=== PATIENT | female | born 1945 | race Caucasian/White ===

== ENCOUNTER 2016-06-28 12:17 | Emergency (ER) | payer MEDICARE ==
[~2016-06-28] VITALS: Wt 111.1 kg
[2016-06-28 12:17] VITALS: BP 150/72
[~2016-06-28 12:17] MED LIST: BUMEX1 MG PO; CATAPRES0.2 MG PO; CHOLESTEROL; CIPROFLOXACIN500 MG PO; CLINDAMYCIN HC300 MG PO; COL-RITE100 M1 PO; COZAAR50 MG PO; GLIPIZIDE10 MG PO; NEURONTIN600 MG PO; NEXIUM40 MG PO; NOVOLIN 70/30 710 ML SC; NYSTATIN CREAM15 GM T; PYRIDIUM200 MG PO; ULTRAM50 MG PO; VICODIN 5/500 505 MG PO; Vicodin 5/500 505 MG PO
[2016-06-28 12:44] LABS: BILIRUBIN NEGATIVE (NEGATIVE); BLOOD 2+ (NEGATIVE); CLARITY CLOUDY (CLEAR); COLOR YELLOW (YELLOW); GLUCOSE 3+ (NEGATIVE); KETONE NEGATIVE (NEGATIVE); LEUKO ESTERASE 1+ (NEGATIVE); NITRITE POSITIVE (NEGATIVE); PH 5.5 (5.0-9.0); PROTEIN 2+ (NEGATIVE); SPECIFIC GRAVITY 1.025 (1.005-1.030)
[2016-06-28 12:46] LABS: BASO % 0.6 % (0.0-1.0); EOS # 0.1 10*3/uL (0.0-0.4); EOS % 2.2 % (1.0-4.0); HEMATOCRIT 45.5 % (37.0-47.0); HEMOGLOBIN 14.9 g/dl (12.0-16.0); LYMPH % 32.1 % (27.0-41.0); MEAN CELL VOLUME 84.7 fl (81.0-99.0); MEAN CORPUSCULAR HGB 27.7 pg (27.0-31.0); MEAN CORPUSCULAR HGB CONC 32.7 g/dl (33.0-37.0); MEAN PLATELET VOLUME 11.8 fl (9.6-12.3); MONO # 0.3 10*3/uL (0.1-1.0); MONO % 5.2 % (3.0-9.0); NEUT # 3.8 10*3/uL (2.3-7.9); NEUT % 59.6 % (47.0-73.0); PLATELET COUNT AUTOMATED 193 10*3/uL (130-400); RED BLOOD COUNT 5.37 10*6/uL (4.10-5.10); RED CELL DISTRI WIDTH 13.6 % (0-14.5); WHITE BLOOD COUNT 6.4 10*3/uL (4.8-10.8)
[2016-06-28 12:50] LABS: BACTERIA 4+; URINE REFLEX COMMENT YES (NO); WBC 51-100 wbc/hpf (0-5)
[2016-06-28 13:02] LABS: ALKALINE PHOSPHATASE 190 U/L (45-117); BILIRUBIN, TOTAL 0.5 mg/dl (0.2-1.0); BUN 18 mg/dl (7-24); CARBON DIOXIDE 28 mmol/L (21-32); CHLORIDE 102 mmol/L (98-107); EST GLOM FILT AFRICAN AMERICAN > 60 ml/min; GLUCOSE 358 mg/dL (65-99); POTASSIUM 4.6 mmol/L (3.5-5.1); SGOT/AST 45 IU/L (3-35); SGPT/ALT 52 U/L (12-78); SODIUM 141 mmol/L (136-145); TOTAL PROTEIN 7.2 gm/dL (6.4-8.2)
[2016-06-28] MEDS ORDERED: MACROBID100 M1 PO (13:25)
== END 2016-06-28 13:26 | disposition home or self-care (01) ==
LOC: ED 12:17
PROVIDERS: Registered Nurse
DX: N30.01 Acute cystitis with hematuria (principal); E11.65 Type 2 diabetes mellitus with hyperglycemia; Z98.51 Tubal ligation status; Z90.710 Acquired absence of both cervix and uterus; Z98.890 Other specified postprocedural states; Z79.899 Other long term (current) drug therapy; Z88.2 Allergy status to sulfonamides; Z88.5 Allergy status to narcotic agent; Z88.6 Allergy status to analgesic agent; Z88.1 Allergy status to other antibiotic agents; Z91.041 Radiographic dye allergy status; Z88.0 Allergy status to penicillin

== ENCOUNTER 2016-10-10 23:49 | Emergency (ER) | payer MEDICARE ==
[~2016-10-10] VITALS: Ht 170.1 cm; Wt 117.0 kg
[~2016-10-10 23:49] MED LIST changes: +MACROBID100 M1 PO
[2016-10-11 00:04] VITALS: BP 170/91
[2016-10-11] MEDS ORDERED: NOVOLIN 70100 UNIT/1 SQ (00:05)
[2016-10-11] MEDS ORDERED: KENALOG 0.025%15 GM T (00:07)
[2016-10-11 00:40] LABS: BASO # 0.1 10*3/uL (0.0-0.1); BASO % 0.7 % (0.0-1.0); EOS # 0.2 10*3/uL (0.0-0.4); EOS % 2.2 % (1.0-4.0); HEMATOCRIT 48.7 % (37.0-47.0); HEMOGLOBIN 15.7 g/dl (12.0-16.0); LYMPH # 2.3 10*3/uL (1.3-4.4); LYMPH % 31.2 % (27.0-41.0); MEAN CELL VOLUME 85.3 fl (81.0-99.0); MEAN CORPUSCULAR HGB 27.5 pg (27.0-31.0); MEAN CORPUSCULAR HGB CONC 32.2 g/dl (33.0-37.0); MEAN PLATELET VOLUME 11.1 fl (9.6-12.3); MONO # 0.4 10*3/uL (0.1-1.0); MONO % 5.3 % (3.0-9.0); NEUT # 4.4 10*3/uL (2.3-7.9); NEUT % 60.1 % (47.0-73.0); PLATELET COUNT AUTOMATED 218 10*3/uL (130-400); RED BLOOD COUNT 5.71 10*6/uL (4.10-5.10); RED CELL DISTRI WIDTH 13.2 % (0-14.5); WHITE BLOOD COUNT 7.3 10*3/uL (4.8-10.8)
[2016-10-11 00:55] LABS: ALBUMIN 3.1 gm/dl (3.1-4.5); BILIRUBIN, TOTAL 0.3 mg/dl (0.2-1.0); C-REACTIVE PROTEIN 0.99 MG/DL (0-0.3); POTASSIUM 4.5 mmol/L (3.5-5.1)
[2016-10-11 01:09] LABS: BILIRUBIN NEGATIVE (NEGATIVE); BLOOD NEGATIVE (NEGATIVE); CLARITY SL CLOUDY (CLEAR); COLOR YELLOW (YELLOW); GLUCOSE 3+ (NEGATIVE); KETONE NEGATIVE (NEGATIVE); LEUKO ESTERASE NEGATIVE (NEGATIVE); NITRITE NEGATIVE (NEGATIVE); PH 5.5 (5.0-9.0); PROTEIN NEGATIVE (NEGATIVE)
[2016-10-11 01:31] LABS: BACTERIA 3+; URINE REFLEX COMMENT YES (NO); WBC 21-30 wbc/hpf (0-5)
[2016-10-11] MEDS ORDERED: CLINDAMYCIN HC300 MG PO (02:23)
[2016-10-11] MEDS ORDERED: FLAGYL500 MG PO (02:23)
== END 2016-10-11 02:42 | disposition home or self-care (01) ==
LOC: ED 23:49
PROVIDERS: Emergency Medicine Emergency Medical Services
DX: E11.621 Type 2 diabetes mellitus with foot ulcer (principal); L97.419 Non-pressure chronic ulcer of right heel and midfoot with unspecified severity; E11.65 Type 2 diabetes mellitus with hyperglycemia; N39.0 Urinary tract infection, site not specified; Z88.0 Allergy status to penicillin; Z88.6 Allergy status to analgesic agent; Z88.8 Allergy status to other drugs, medicaments and biological substances; Z88.1 Allergy status to other antibiotic agents; Z91.041 Radiographic dye allergy status; Z79.899 Other long term (current) drug therapy; Z79.4 Long term (current) use of insulin

== ENCOUNTER → 2016-10-16 | Outpatient (CLI) | payer MEDICARE ==
[~2016-10-16] MED LIST changes: +FLAGYL500 MG PO; +KENALOG 0.025%15 GM T; +NOVOLIN 70100 UNIT/1 SQ
== END ==
LOC: WOUNDCARE 12:25
DX: E11.621 Type 2 diabetes mellitus with foot ulcer (principal); L89.610 Pressure ulcer of right heel, unstageable; E66.9 Obesity, unspecified; E11.40 Type 2 diabetes mellitus with diabetic neuropathy, unspecified; L84 Corns and callosities; Z90.710 Acquired absence of both cervix and uterus

== ENCOUNTER → 2016-11-04 | Outpatient (CLI) | payer MEDICARE | END | disposition home or self-care (01) | LOC: US 10-24 15:00 | DX: E11.621 Type 2 diabetes mellitus with foot ulcer (principal); I73.9 Peripheral vascular disease, unspecified; L97.519 Non-pressure chronic ulcer of other part of right foot with unspecified severity; S91.301A Unspecified open wound, right foot, initial encounter; X58.XXXA Exposure to other specified factors, initial encounter; Y93.89 Activity, other specified; Y92.89 Other specified places as the place of occurrence of the external cause; Y99.8 Other external cause status ==

== ENCOUNTER → 2016-11-11 | Outpatient (CLI) | payer MEDICARE ==
--- NOTE | ~2016-11-11 | PR ---
[place], [place] PROGRESS NOTE NAME: KASHIF MARQUES [facility] #: [id number] UNIT #: [id number] ROOM: DOCTOR: JOHNNIE ClaireKRIS BIRTHDATE: [birth year] DOS: 11/11/2016 CHIEF COMPLAINT: Follow up of diabetic foot ulcer. HISTORY OF PRESENT ILLNESS: This is a 70-year-old female who was seen for the first time on 10/16/2016 for a diabetic foot ulcer of approximately 2-3 weeks at that time. She has unfortunately missed two appointments after that and comes in today for her followup visit. At that time, it was noted that she had a fairly thick eschar on her right heel that was fairly asymptomatic, no aggressive debridement was done. It was felt to just that it would be best to try to keep the wound dry and an ultrasound was ordered. We had also encouraged her to offload the area as much as possible. She did eventually undergo an ultrasound that was done on 11/04/2016 which shows severe peripheral vascular disease of the right leg. There is apparent occlusion of the distal superficial femoral artery with reconstitution of the popliteal artery and dampened abnormal flow, as described monophasic flow is seen distally. The patient notes that it is starting to drain for the past week or so, she has noticed some drainage and it is starting to become painful and reddened around it. She is off antibiotics for approximately a week. When I asked specifically what her sugars were, she says all in the 200 range. I was able to see what her last hemoglobin A1c was, it was over 13, but that was several years ago, and I did not see anything recently after that. She offers no other specific complaints. Her states that she is definitely trying to keep the pressure off of it. She rarely is up on her feet at all and when she is lying in a chair or her bed, her foot is free from pressure. PHYSICAL EXAMINATION: VITAL SIGNS: She is afebrile, pulse is 88, respirations 20, blood pressure is 124/82, temperature is 98.3. WOUND EXAMINATION: Apparently, the staff noted that there was some slight odor when they first took the dressing off. Currently, I do not appreciate an odor. There is still some fairly thick eschar, but a lot of it is soft fibrin and slough. There is erythema around the heel area and also tenderness. It is slightly warm to touch as well. A selective debridement was done to remove some of the devitalized tissue that was already starting to come off where the eschar appears to have softened and forceps and scissors were utilized. Post-debridement, culture swab was obtained as well. Post-debridement measurements are 2.2 x 2.3 x 0.2. I am actually able to see some of the base of the wound after some of the eschar was removed and it does not appear to be independent or bone at this time. ASSESSMENT AND PLAN: Diabetic foot ulcer. I would still classify it as unstageable as we still have some eschar left that we cannot see the base of the wound. She definitely has vascular disease and needs to see Vascular for a consultation. I did explain how important this is, so we will go ahead and try to set her up with Vascular as the wound is draining and there is a sign of localized infection. We will go ahead and start antibiotics empirically, she does not appear septic in any way, a culture was obtained. We will start doxycycline 100 twice a day. We will go ahead and advise to use TheraHoney and Maxorb Ag and have a bulky dressing after that to be changed every day if [place], [place] PROGRESS NOTE NAME: KASHIF MARQUES UNIT #: [id number] ROOM: DOCTOR: KRIS BLAIR M.D. BIRTHDATE: [birth year] possible. I did also discuss the fact that her diabetes is uncontrolled and she really needs to get her diabetic control much improved. So, we will go ahead and check a hemoglobin A1c as I could not find one done recently and an MRI without contrast has been ordered. She does not wish to have any kind contrast at this point as she has had a severe reaction in the past. So, we will go ahead and start with an open MRI of the right heel, noncontrast for now. She does have some claustrophobia and requested something to be given prior to the test. So, a script for Xanax 0.25 mg tablets 1-2 tablets 15 minutes before the test was ordered for her. Followup within 1 week. KRIS BLAIR MD CM:PNTRANS [id number] KRIS BLAIR M.D. 11/11/16 1647 interface
[2016-11-11 15:52] LABS: HEMOGLOBIN A1c 10.5 % (4.8-5.6)
== END | disposition home or self-care (01) ==
LOC: LAB 03:15 → WOUNDCARE 03:15
DX: E11.621 Type 2 diabetes mellitus with foot ulcer (principal); L89.610 Pressure ulcer of right heel, unstageable

== ENCOUNTER 2016-11-16 18:56 | Emergency (ER) | payer MEDICARE ==
[~2016-11-16] VITALS: Ht 162.5 cm; Wt 117.9 kg
[~2016-11-16 18:56] MED LIST changes: +COZAAR100 MG PO; -COZAAR50 MG PO
[2016-11-16 19:05] VITALS: BP 140/90
[2016-11-16 19:43] LABS: BASO % 0.5 % (0.0-1.0); EOS # 0.1 10*3/uL (0.0-0.4); EOS % 1.3 % (1.0-4.0); HEMATOCRIT 45.8 % (37.0-47.0); HEMOGLOBIN 14.9 g/dl (12.0-16.0); IG # 0.1 10*3/uL (0.0-0.1); LYMPH # 2.3 10*3/uL (1.3-4.4); MEAN CELL VOLUME 85.8 fl (81.0-99.0); MEAN CORPUSCULAR HGB 27.9 pg (27.0-31.0); MEAN CORPUSCULAR HGB CONC 32.5 g/dl (33.0-37.0); MEAN PLATELET VOLUME 11.1 fl (9.6-12.3); MONO # 0.8 10*3/uL (0.1-1.0); NEUT # 5.2 10*3/uL (2.3-7.9); NEUT % 61.6 % (47.0-73.0); PLATELET COUNT AUTOMATED 238 10*3/uL (130-400); RED BLOOD COUNT 5.34 10*6/uL (4.10-5.10); RED CELL DISTRI WIDTH 13.4 % (0-14.5); WHITE BLOOD COUNT 8.4 10*3/uL (4.8-10.8)
[2016-11-16 19:57] LABS: ALBUMIN 2.8 gm/dl (3.1-4.5); BILIRUBIN, TOTAL 0.4 mg/dl (0.2-1.0); POTASSIUM 4.2 mmol/L (3.5-5.1); TOTAL PROTEIN 7.6 gm/dL (6.4-8.2)
[2016-11-16 20:15] LABS: HEMOGLOBIN A1c 10.2 % (4.8-5.6)
[2016-11-16] MEDS ORDERED: ZOFRAN ODT4 MG SL (22:07)
== END 2016-11-16 22:56 | disposition home or self-care (01) ==
LOC: ED 18:56
PROVIDERS: Emergency Medicine Emergency Medical Services
DX: E11.621 Type 2 diabetes mellitus with foot ulcer (principal); L97.519 Non-pressure chronic ulcer of other part of right foot with unspecified severity; Z98.51 Tubal ligation status; Z98.890 Other specified postprocedural states; Z90.710 Acquired absence of both cervix and uterus; Z79.899 Other long term (current) drug therapy; Z91.041 Radiographic dye allergy status; Z88.5 Allergy status to narcotic agent; Z88.0 Allergy status to penicillin; Z88.2 Allergy status to sulfonamides; Z88.6 Allergy status to analgesic agent; Z88.1 Allergy status to other antibiotic agents

== ENCOUNTER 2016-11-18 10:52 | Inpatient (IN) | payer MEDICARE ==
[~2016-11-18] VITALS: Ht 170.2 cm; Wt 111.1 kg
--- NOTE | ~2016-11-18 | PR ---
[place], [place] PROGRESS NOTE NAME: KASHIF MARQUES UNIT #: [id number] ROOM: 416 DOCTOR: THUY MCLAUGHLIN MD BIRTHDATE: [birth year] DOS: SUBJECTIVE: The patient states that she continues to have pain in the right heel, does not have any new complaints. OBJECTIVE: VITAL SIGNS: Blood pressure is 119/53, pulse of 95, respirations 20, temperature 98.8. LUNGS: Diminished breath sounds, clear. HEART: Regular. ABDOMEN: Obese. EXTREMITIES: No edema on the left. Right, no swelling noted. Some redness in the heel area with eschar still present with some minimal drainage. LABORATORY DATA: MRI of the right heel showed high grade tear of the Achilles tendon with cellulitis and soft tissue swelling as well as osteomyelitis of the posterolateral aspect of the calcaneum with bone marrow edema and plantar fascitis. Bone scan also showed osteomyelitis of the right calcaneum. ASSESSMENT AND PLAN: 1. 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 The patient is on IV antibiotics. 2. Severe peripheral vascular disease. She underwent an arterial Doppler recently and she was scheduled to see Dr. Busch as an outpatient end. I already spoke to him yesterday and he is planning to take her to the [facility] this morning for a CT angiogram. I discussed with both patient and her in detail. 3. Type 2 diabetes mellitus, insulin-dependent. Blood sugars have not been very well controlled, hemoglobin A1c is high. The patient was started on Tradjenta in addition to her other medications. Blood sugar is 128 this morning. Encouraged the patient to make sure that she takes better control of her diabetes. 4. Hypertension, controlled. I did discuss with the patient's and the patient about possibility of shelter placement after hospitalization at [place] for continued wound care and IV antibiotics, which she will require for 6 weeks. [place], [place] PROGRESS NOTE NAME: KASHIF MARQUES UNIT #: [id number] ROOM: 416 DOCTOR: THUY MCLAUGHLIN MD BIRTHDATE: [birth year] THUY MCLAUGHLIN MD CM:PNTRANS [id number] THUY MCLAUGHLIN MD 11/20/161932 interface
--- NOTE | ~2016-11-18 | CON ---
[place], [place] REPORT OF CONSULTATION [id number] UNIT #: [id number] ROOM: 416 DOCTOR: KRIS BLAIR M.D. BIRTHDATE: [birth year] DOS: 11/19/2016 WOUND CARE CONSULT CHIEF COMPLAINT: Diabetic foot ulcer. HISTORY OF PRESENT ILLNESS: This is a 70-year-old female with history of poorly controlled diabetes who was seen in the Wound Clinic mid October for the first time for a diabetic foot ulcer. She apparently had the ulcer for approximately 3 weeks prior to that where she thought that it started when a coin got in her shoe and she had been walking on it without realizing it and developed an ulcer. When she presented, the area was located on the right heel and it was fairly asymptomatic at the time with a thick dry eschar, dull aggressive debridement was done at that time. It was felt that the best, try to keep it dry until vascular studies were done. KRIS BLAIR MD CM:CONSTR:REPORT OF CONSULTATION 1110 11/20/16 1227 interface
--- NOTE | ~2016-11-18 | DS ---
[place], [place] DISCHARGE SUMMARY NAME: KASHIF MARQUES [facility] #: [id number] UNIT #: [id number] ROOM: 416 DOCTOR: THUY MCLAUGHLIN MD BIRTHDATE: [birth year] DOS: 11/20/2016 DIAGNOSES: 1. Osteomyelitis of the calcaneum. 2. Rupture of Achilles tendon of the right with plantar fasciitis. 3. Severe peripheral vascular disease. 4. Needing CTA of the lower extremity. The patient to go to [place] under Dr. Busch's care this morning. 5. Adult failure to thrive, may require longterm placement for continued IV antibiotics and wound care, which hopefully will be arranged once she gets to the [facility]. 6. Type 2 diabetes mellitus, insulin dependent, poorly controlled. 7. Benign hypertension. 8. Chronic kidney disease stage 3. HOSPITAL COURSE: This patient is a 70-year-old, patient of Dr. Wing, comes in with complaints of swelling and redness of the right heel. She has been seeing Wound Clinic for a while and has been getting treated with p.o. antibiotics. Ultrasound was recently done, which showed significant disease and the patient was supposed to see Dr. Busch as an outpatient end of this month, but because of increasing pain and swelling and growth of some bacteria in the wound, she was admitted to [facility] on the 14th evening. After admission, she was noted to have E. coli in the wound. She was placed on IV meropenem. An MRI of the ankle and foot as well as a triphasic bone scan were done. ESR and CRP were extremely elevated with a CRP which is 12.0 and ESR of 90. MRI of the ankle showed Achilles tendon tear, significant soft tissue swelling and calcaneal osteomyelitis. Dr. Dillon from Wound Clinic did see the patient and since she has significant disease, the patient is going to [facility] for CT angiogram and further care. She will benefit from 6 weeks of IV antibiotics, and hopefully, she will be admitted to rehab to continue receiving that. DISCHARGE MEDICATIONS: Meropenem 1 g IV b.i.d., Nexium 40 daily, losartan 100 daily, glipizide 10 b.i.d., gabapentin 600 b.i.d., clonidine 0.2 at bedtime, Colace 100 mg daily, insulin 70/30, 80 units twice daily, MiraLax 17 g daily, Bumex 1 mg b.i.d. is on hold because of the mild renal insufficiency and she has been started on a slow IV hydration for the pending CT angiogram. [place], [place] DISCHARGE SUMMARY NAME: KASHIF MARQUES UNIT #: [id number] ROOM: [facility] DOCTOR: THUY MCLAUGHLIN MD BIRTHDATE: [birth year] THUY MCLAUGHLIN MD CM:DISCHASIF [id number] THUY MCLAUGHLIN MD 11/20/16899 interface
--- NOTE | ~2016-11-18 | WRIGHTHP ---
[place], [place] PATIENT HISTORY AND PHYSICAL EXAM NAME: KASHIF MARQUES [facility] #: [id number] UNIT #: [id number] ROOM: 416 DOCTOR: THUY MCLAUGHLIN MD BIRTHDATE: [birth year] DOS: 11/18/2016 HISTORY OF PRESENT ILLNESS: The patient states that she was walking around with some coins in her shoe without realizing because of her neuropathy. This caused some irritation of the right heel. This continued to progress and got infected, so she decided to go to the Wound Clinic. She was seen by the Wound Care Clinic twice in the last one month. She had debridement performed. Given Therahoney dressings. She continued to get worse with increasing pain and swelling. The patient was seen by visiting nurses recently and wound cultures were ordered, which showed E. coli and the patient was asked to come in. The patient does have a low-grade fever when she arrived and a lot of drainage from the right heel. She does not have any complaints of chest pains, palpitations, shortness of breath. Does not have any fever or chills. She has a lot of pain in her right heel and is unable to walk. PAST MEDICAL HISTORY: Significant for: 1. Type 2 diabetes mellitus, insulin-dependent. 2. Benign hypertension. 3. Chronic obstructive pulmonary disease. 4. Mixed hyperlipidemia. 5. Gastroesophageal reflux disease. 6. History of endometrial CA status post hysterectomy. MEDICATIONS: She is currently on are home meds, Bumex 1 mg b.i.d., clonidine 0.2 at bedtime, Colace 100 daily, doxycycline 100 b.i.d., omeprazole 40 daily, gabapentin 600 b.i.d., glipizide 10 b.i.d., losartan 100 daily, insulin 70/30, 8 units twice a day, MiraLax 17 grams daily. SOCIAL HISTORY: Currently does not use any alcohol. She lives at home with her . PHYSICAL EXAMINATION: GENERAL: She is awake and alert and oriented. VITAL SIGNS: Graphic trend shows a blood pressure 120/58, pulse of 80, respirations 20, temperature 98.2. LUNGS: Diminished breath sounds. No wheezes, rales or rhonchi heard. HEART: Regular. ABDOMEN: Obese. EXTREMITIES: Without any edema. Right foot ulcer on the right heel with an eschar. LABORATORY DATA: Hemoglobin A1c is 10.2. WBC count is 12.2, hemoglobin 13.6, hematocrit 41.8, platelets 251. Protime 11.5 with an INR of 1.1. Comprehensive glucose 275, BUN 29, creatinine 1.32. Electrolytes normal. C-reactive protein is 10.40. ESR is 79. Foot x-ray showed osteomyelitis with a calcaneal spur. ASSESSMENT AND PLAN: [place], [place] PATIENT HISTORY AND PHYSICAL EXAM [facility]: [id number] UNIT #: [id number] ROOM: [facility] DOCTOR: THUY MCLAUGHLIN MD BIRTHDATE: [birth year] 1. The patient who presents with poorly healing wound of the right heel with possible osteomyelitis with elevated C-reactive protein and ESR. The patient is ordered a bone scan as well as an MRI this morning. IV antibiotics have been started. May require a PICC line placement. 2. Type 2 diabetes mellitus, poorly controlled. Further adjustments in medications to be made. 3. Benign hypertension, controlled. 4. Wound culture showing E. coli. Again, IV meropenem has been started. Dr. Dillon has been consulted. THUY MCLAUGHLIN MD CM:HISPHYS:PATIENT HISTORY AND PHYSICAL EXAMINATION [id number] THUY MCLAUGHLIN MD 11/19/16 0821 interface
[~2016-11-18 10:52] MED LIST changes: +ZOFRAN ODT4 MG SL
[2016-11-18 10:55] VITALS: BP 108/53
[2016-11-18 11:27] VITALS: BP 110/62
[2016-11-18 11:35] LABS: BASO # 0.1 10*3/uL (0.0-0.1); BASO % 0.4 % (0.0-1.0); EOS # 0.1 10*3/uL (0.0-0.4); EOS % 0.8 % (1.0-4.0); HEMATOCRIT 41.8 % (37.0-47.0); HEMOGLOBIN 13.6 g/dl (12.0-16.0); IG # 0.1 10*3/uL (0.0-0.1); LYMPH # 3.1 10*3/uL (1.3-4.4); LYMPH % 25.5 % (27.0-41.0); MEAN CELL VOLUME 85.8 fl (81.0-99.0); MEAN CORPUSCULAR HGB 27.9 pg (27.0-31.0); MEAN CORPUSCULAR HGB CONC 32.5 g/dl (33.0-37.0); MEAN PLATELET VOLUME 11.1 fl (9.6-12.3); MONO # 0.8 10*3/uL (0.1-1.0); MONO % 6.8 % (3.0-9.0); PLATELET COUNT AUTOMATED 251 10*3/uL (130-400); RED BLOOD COUNT 4.87 10*6/uL (4.10-5.10); RED CELL DISTRI WIDTH 13.3 % (0-14.5); WHITE BLOOD COUNT 12.2 10*3/uL (4.8-10.8)
[2016-11-18 11:45] LABS: INTERNATIONAL NORM RATIO 1.1 (2.0-3.5); PROTHROMBIN TIME 11.5 SECONDS (9.0-12.4)
[2016-11-18 11:52] LABS: ALBUMIN 2.6 gm/dl (3.1-4.5); BILIRUBIN, TOTAL 0.8 mg/dl (0.2-1.0); C-REACTIVE PROTEIN 10.4 MG/DL (0-0.3); MAGNESIUM 1.9 mg/dL (1.5-2.1); POTASSIUM 4.4 mmol/L (3.5-5.1); TOTAL PROTEIN 7.4 gm/dL (6.4-8.2)
[2016-11-18 12:09] VITALS: BP 108/68
[2016-11-18 12:42] VITALS: BP 101/60
[2016-11-18] MEDS ORDERED: MIRALAX POWDER17 G1 PO (14:13)
[2016-11-18] MEDS ORDERED: DOXYCYCLINE100 M3 PO (14:16)
[2016-11-18 16:00] VITALS: BP 106/92
[2016-11-18 20:00] VITALS: BP 108/75
[2016-11-19] VITALS: BP 119/53; BP 120/58
[2016-11-19 01:50] LABS: BILIRUBIN NEGATIVE (NEGATIVE); BLOOD TRACE-LYSED (NEGATIVE); COLOR YELLOW (YELLOW); GLUCOSE NEGATIVE (NEGATIVE); KETONE NEGATIVE (NEGATIVE); LEUKO ESTERASE 1+ (NEGATIVE); NITRITE NEGATIVE (NEGATIVE); PROTEIN NEGATIVE (NEGATIVE)
[2016-11-19 01:55] LABS: CLARITY SL CLOUDY (CLEAR); EPITHELIAL CELLS 40-45; WBC 21-30 wbc/hpf (0-5)
[2016-11-19 01:56] LABS: BACTERIA TRACE; URINE REFLEX COMMENT YES (NO)
[2016-11-19 04:00] VITALS: BP 119/53
[2016-11-19 08:00] VITALS: BP 91/68
[2016-11-19 12:00] VITALS: BP 119/53
[2016-11-19 16:00] VITALS: BP 117/69
[2016-11-19 20:00] VITALS: BP 126/60
[2016-11-20] VITALS: BP 119/53
[2016-11-20 08:00] VITALS: BP 148/66
== END 2016-11-20 10:13 | disposition short-term general hospital (02) | DRG 872 ==
LOC: ED 10:52 → EDHOLD 11:28 → 4E 11:28
PROVIDERS: Emergency Medicine
DX: A41.51 Sepsis due to Escherichia coli [E. coli] (principal); E11.22 Type 2 diabetes mellitus with diabetic chronic kidney disease; E11.51 Type 2 diabetes mellitus with diabetic peripheral angiopathy without gangrene; M86.8X7 Other osteomyelitis, ankle and foot; E11.65 Type 2 diabetes mellitus with hyperglycemia; I12.9 Hypertensive chronic kidney disease with stage 1 through stage 4 chronic kidney disease, or unspecified chronic kidney disease; J44.9 Chronic obstructive pulmonary disease, unspecified; E78.2 Mixed hyperlipidemia; K21.9 Gastro-esophageal reflux disease without esophagitis; E11.69 Type 2 diabetes mellitus with other specified complication; S86.011A Strain of right Achilles tendon, initial encounter; E66.9 Obesity, unspecified; R62.7 Adult failure to thrive; N18.3 Chronic kidney disease, stage 3 (moderate); Z88.5 Allergy status to narcotic agent; Z79.4 Long term (current) use of insulin; Z88.0 Allergy status to penicillin; Z88.2 Allergy status to sulfonamides; Z88.8 Allergy status to other drugs, medicaments and biological substances; Z88.1 Allergy status to other antibiotic agents; Z91.041 Radiographic dye allergy status; Z79.899 Other long term (current) drug therapy; Z98.51 Tubal ligation status; Z90.710 Acquired absence of both cervix and uterus; Z80.8 Family history of malignant neoplasm of other organs or systems; Z82.5 Family history of asthma and other chronic lower respiratory diseases; Z83.3 Family history of diabetes mellitus; M66.871 Spontaneous rupture of other tendons, right ankle and foot; M72.2 Plantar fascial fibromatosis; E11.621 Type 2 diabetes mellitus with foot ulcer; L97.519 Non-pressure chronic ulcer of other part of right foot with unspecified severity; L89.600 Pressure ulcer of unspecified heel, unstageable

== ENCOUNTER 2017-03-18 09:30 | Emergency (ER) | payer MEDICARE ==
[~2017-03-18] VITALS: Ht 170.1 cm; Wt 102.1 kg
[~2017-03-18 09:30] MED LIST changes: +DOXYCYCLINE100 M3 PO; +MIRALAX POWDER17 G1 PO
[2017-03-18 10:08] LABS: BASO % 0.3 % (0.0-1.0); EOS # 0.1 10*3/uL (0.0-0.4); LYMPH # 1.4 10*3/uL (1.3-4.4); LYMPH % 23.5 % (27.0-41.0); MEAN CORPUSCULAR HGB 26.9 pg (27.0-31.0); MEAN CORPUSCULAR HGB CONC 32.4 g/dl (33.0-37.0); MEAN PLATELET VOLUME 10.9 fl (9.6-12.3); MONO # 0.3 10*3/uL (0.1-1.0); NEUT # 4.1 10*3/uL (2.3-7.9); NEUT % 68.4 % (47.0-73.0); PLATELET COUNT AUTOMATED 180 10*3/uL (130-400); RED BLOOD COUNT 4.46 10*6/uL (4.10-5.10); RED CELL DISTRI WIDTH 13.8 % (0-14.5)
[2017-03-18 10:27] LABS: ALBUMIN 2.7 gm/dl (3.1-4.5); CREATININE 1.14 mg/dL (0.55-1.02); TOTAL PROTEIN 6.8 gm/dL (6.4-8.2)
[2017-03-18 11:15] LABS: BILIRUBIN NEGATIVE (NEGATIVE); BLOOD 3+ (NEGATIVE); CLARITY SL CLOUDY (CLEAR); COLOR YELLOW (YELLOW); GLUCOSE 1+ (NEGATIVE); KETONE NEGATIVE (NEGATIVE); LEUKO ESTERASE NEGATIVE (NEGATIVE); NITRITE NEGATIVE (NEGATIVE); PH 7.5 (5.0-9.0)
[2017-03-18 11:30] LABS: BACTERIA 1+; EPITHELIAL CELLS 20-30; RBC TNTC rbc/hpf (0-2)
[2017-03-18 14:13] VITALS: BP 168/78
[2017-03-18] MEDS ORDERED: ZITHROMAX250 MG PO (14:23)
[2017-03-18] MEDS ORDERED: REGLAN5 MG PO (14:42)
== END 2017-03-18 14:59 | disposition home or self-care (01) ==
LOC: ED 09:30
PROVIDERS: Emergency Medicine
DX: K29.70 Gastritis, unspecified, without bleeding (principal); J32.9 Chronic sinusitis, unspecified; E11.621 Type 2 diabetes mellitus with foot ulcer; Z88.2 Allergy status to sulfonamides; Z91.041 Radiographic dye allergy status; Z88.6 Allergy status to analgesic agent; Z88.5 Allergy status to narcotic agent; Z88.0 Allergy status to penicillin; Z88.8 Allergy status to other drugs, medicaments and biological substances; Z79.4 Long term (current) use of insulin; Z79.899 Other long term (current) drug therapy; Z90.710 Acquired absence of both cervix and uterus; Z98.51 Tubal ligation status

== ENCOUNTER 2017-05-05 17:22 | Inpatient (IN) | payer MEDICARE ==
[~2017-05-05] VITALS: Ht 170.1 cm; Wt 123.1 kg
--- NOTE | ~2017-05-05 | PR ---
[place], [place] PROGRESS NOTE NAME: KASHIF MARQUES [facility] #: [id number] UNIT #: [id number] ROOM: 525 DOCTOR: GEO KINGSLEY DPM BIRTHDATE: [birth year] DOS: 05/08/2017 SUBJECTIVE: The patient presents for followup of ulcerations to the posterior right heel and posterior right Achilles tendon. OBJECTIVE: Clinical examination reveals localized erythema surrounding the ulcerations which are all full thickness to subcutaneous tissue level. There is localized erythema, but no signs of definitive abscess noted. Results of the patient's radiographs, 3 foot views of the right foot revealed no definitive evidence for osteomyelitis, although a small infectious process could involve the Achilles tendon and posterior calcaneus. ASSESSMENT: Ulcerations to the posterior right heel and Achilles tendon, right. Rule out underlying bone involvement. History of peripheral vascular disease. PLAN: Evaluation and management discussed with the patient and her . We will obtain an MRI to rule out osseous involvement and any underlying pocket. Clinically, I do not think this is the case, but due to the fact the patient is not currently on antibiotics and due to the clinical appearance, I would like to rule out any further involvement. Additionally, repeated patient's arterial Dopplers bilateral. The patient has a history of avascular interventional procedure approximately [address] Busch. We will recheck her arterial flow to confirm there is no further stenosis or need for further intervention by Dr. Busch. Discussed the patient's case with Dr. Coyne, who will see the patient tomorrow. I also discontinued the Santyl and ordered Bactroban and dressings instead due to the localized hyperemia and erythema. GEO KINGSLEY DPM CM:PNTRANS [id number] GEO KINGSLEY DPM 05/08/17 1318 interface
--- NOTE | ~2017-05-05 | WRIGHTHP ---
[place], [place] PATIENT HISTORY AND PHYSICAL EXAM NAME: KASHIF MARQUES [facility] #: [id number] UNIT #: [id number] ROOM: 525 DOCTOR: KADEN GRAY MD BIRTHDATE: [birth year] DOS: 05/05/2017 HISTORY OF PRESENT ILLNESS: The patient is a 71-year-old female with a past medical history of: 1. Morbid obesity. 2. Diverticulosis of the colon and diverticular abscess in the past. 3. Adult failure to thrive and advanced disability. 4. Type 2, uncontrolled diabetes mellitus and diabetic peripheral polyneuropathy. 5. GERD and esophagitis. 6. Benign essential hypertension. 7. Mixed hyperlipidemia. 8. COPD. 9. Diabetic gastroparesis. 10. History of endometrial cancer, status post hysterectomy and negative lymph nodes. 11. Chronic diastolic type congestive heart failure. The patient presented to the Emergency Department with 1-1/2 week complaints of increasing shortness of breath. There were no complaints of chest pains. There was some chronic cough with whitish sputum and complaints of chronic nausea and vomiting. No chest pain. No dizziness or fainting episodes. The patient has been quite weak and staying at home. REVIEW OF SYSTEMS: LUNGS: Increasing shortness of breath. GASTROINTESTINAL: Chronic nausea. CARDIOVASCULAR: No chest pains or palpitations. ALLERGIES: Known allergies to IODINE, PENICILLIN, SULFUR, CODEINE, DEMEROL, DILAUDID, KETOROLAC, DIPHENHYDRAMINE, QUINOLONES, OPIATES. PHYSICAL EXAMINATION: VITAL SIGNS: Blood pressure is 133/68, heart rate 85 beats per minute, breathing 20 times per minute, temperature 99 degrees Fahrenheit, BMI of 41.5. GENERAL: Alert, oriented x 3, but a poor historian, in no visible distress, morbidly obese. HEENT AND NECK: Extraocular movements are intact. Sclerae are anicteric. Oral mucosa is moist and clean. No obvious facial weakness. Neck is supple without any lymphadenopathy. No thyromegaly. No JVD. No carotid arterial bruits. LUNGS: Clear to auscultation. No wheezing. No rhonchi. CARDIOVASCULAR SYSTEM: Heart rate is regular in rate and rhythm. S1 and S2 normally audible. No significant murmur or any other abnormal cardiac sounds. ABDOMEN: Soft, nontender. No obvious organomegaly. Bowel sounds are present. No obvious herniation. EXTREMITIES: Superficial ulcers on her legs. CENTRAL NERVOUS SYSTEM: Alert and oriented x 3. Cranial nerves II-XII are intact. Speech is normal. The patient is able to move all extremities. Normal muscle strength. Deep tendon reflexes are equal on both sides. Plantars were downgoing. [place], [place] PATIENT HISTORY AND PHYSICAL EXAM NAME: KASHIF MARQUES UNIT #: [id number] ROOM: [facility] DOCTOR: KADEN GRAY MD BIRTHDATE: [birth year] LABORATORY DATA: Chest x-ray is a poor study and inconclusive. BUN and creatinine 18 and 1.37, potassium level of 3.1. ProBNP of 2000. No leukocytosis. Normal CBC and platelets. Urine culture is growing resistant E. coli. PT, PTT were baseline. FAMILY HISTORY: Noncontributory. SOCIAL HISTORY: The patient denies smoking cigarettes, alcohol and drug abuse. MEDICATIONS: MiraLax, metoprolol, Reglan, Tradjenta, metoprolol, Imdur, Plavix, aspirin, losartan, Colace, metoclopramide, Protonix, Bumex, Levemir insulin, potassium. IMPRESSION AND PLAN: 1. Urinary tract infection with resistant Escherichia coli. The patient has so many allergies that I will consult Infectious Diseases to treat and find an antibiotic for her. 2. Acute over chronic diastolic type congestive heart failure, being treated with diuresis, serum electrolytes will be monitored. 3. Hypokalemia secondary to diuresis, being replaced with extra potassium supplements and be monitored with repeat potassium levels. 4. Uncontrolled type 2 diabetes mellitus. We will follow blood sugars and treat accordingly. 5. Diabetic gastroparesis. I will restart her on Reglan and also treat her with Zofran as needed. 6. Centrilobular emphysema with chronic shortness of breath, whitish sputum, will be treated with bronchodilators. 7. Mixed hyperlipidemia. We will treat accordingly and continue home meds. 8. Benign essential hypertension. Blood pressure will be monitored and treated. 9. Morbid obesity. The patient to work with dietary. 10. The patient to be kept on a panel monitor. Cardiology has been consulted to follow her. [place], [place] PATIENT HISTORY AND PHYSICAL EXAM NAME: KASHIF MARQUES UNIT #: [id number] ROOM: [facility] DOCTOR: KADEN GRAY MD BIRTHDATE: [birth year] KADEN GRAY MD CM:HISPHYS:PATIENT HISTORY AND PHYSICAL EXAMINATION [id number] KADEN GRAY MD 05/06/17 0857 interface
--- NOTE | ~2017-05-05 | PR ---
[place], [place] PROGRESS NOTE NAME: KASHIF MARQUES [facility] #: [id number] UNIT #: [id number] ROOM: 525 DOCTOR: KADEN GRAY MD BIRTHDATE: [birth year] DOS: 05/07/2017 SUBJECTIVE: The patient is a 71-year-old female. She remains at the hospital for congestive heart failure, shortness of breath and adult failure to thrive. PHYSICAL EXAMINATION: VITAL SIGNS: Blood pressure 138/76, heart rate of 80 beats per minute, breathing 20 times per minute, afebrile, morbidly obese. GENERAL APPEARANCE: The patient is alert and oriented x 3, in no visible distress. HEENT AND NECK: Exam within normal limits. CARDIOVASCULAR SYSTEM: Heart rate is regular in rate and rhythm. S1 and S2 normally audible. LUNGS: Clear to auscultation. ABDOMEN: Soft, nontender. No obvious organomegaly. Bowel sounds are present. EXTREMITIES: Chronic leg edema and leg ulcerations. IMPRESSION: 1. The patient's urine cultures growing 50,000 colonies of E. coli, which are resistant to all antibiotics, but PENICILLIN which she is allergic to. Infectious Disease specialists were consulted and they think it is colonization and not an active infection, which needs to be treated so it will be left alone. 2. Acute over chronic diastolic type congestive heart failure, improved with diuresis. The patient is breathing better. 3. Adult failure to thrive, morbid obesity, generalized weakness and chronic failure to thrive. I am trying to get her to retirement facility for rehabilitation, although the patient has been quite reluctant. If she does not agree, then she will be sent home with visiting nurses, which she already has at home and she needs more physical therapy. 4. Uncontrolled type 2 diabetes mellitus. Blood sugars are going up to 300, ranging between 300-400 range. I will increase her Levemir insulin to 40 units twice a day instead of 30 units twice a day that she was taking at home. 5. Chronic constipation, treated and controlled with Colace. 6. Benign essential hypertension. Blood pressure is being treated and monitored. 7. Hypokalemia, treated with extra potassium supplements. Potassium level is normal now. 8. Chronic kidney disease, stage 3b, and since congestive heart failure has cleared, I will reduce her diuretics. 9. Diabetic gastroparesis. Symptoms have improved with treatment with Reglan and Zofran. 10. Centrilobular emphysema treated with bronchodilators as a chronic disease. 11. Morbid obesity. The patient working with dietary. [place], [place] PROGRESS NOTE NAME: KASHIF MARQUES UNIT #: [id number] ROOM: [facility] DOCTOR: KADEN GRAY MD BIRTHDATE: [birth year] KADEN GRAY MD CM:PNTRANS [phone] KADEN GRAY MD 05/07/172134 interface
--- NOTE | ~2017-05-05 | DS ---
[place], [place] DISCHARGE SUMMARY NAME: KASHIF MARQUES UNIT #: [id number] ROOM: 525 DOCTOR: KADEN GRAY MD BIRTHDATE: [birth year] DOS: 05/08/2017 DISCHARGE DIAGNOSES: 1. 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 2. Acute over chronic diastolic type congestive heart failure, improved with treatment. 3. Adult failure to thrive, morbid obesity, generalized weakness and chronic failure to thrive. 4. Uncontrolled type 2 diabetes mellitus. 5. Morbid obesity. 6. Chronic constipation. 7. Benign essential hypertension. 8. Hypokalemia, treated with extra potassium supplements. 9. Chronic kidney disease stage 3b. 10. Diabetic gastroparesis. 11. Centrilobular emphysema, chronic obstructive pulmonary disease. 12. Gastroesophageal reflux disease and esophagitis. 13. History of endometrial cancer, status post hysterectomy negative lymph nodes. 14. History of diverticulosis of the colon and diverticular abscess in the past. HOSPITAL COURSE: The patient with multiple medical problems, presented to the Emergency Department with 1-1/2 week complaints of increasing shortness of breath and she was found to be in congestive heart failure. The patient was diuresed with IV Bumex and her breathing improved and she diuresed well. The patient appears to have achieved maximum benefit from this admission and is being [facility] for [facility]. Acute over chronic diastolic type congestive heart failure as mentioned above was treated. Urine cultures growing resistant E. coli were reviewed by Infectious Disease specialist and not recommended for treatment because it appears to be asymptomatic colonization. Advance adult failure to thrive. The patient was barely able to ambulate at home, worked with physical therapy and is going to [facility] for continued physical therapy and rehabilitation. Fungal skin infection in the skin folds, to be treated with nystatin powder 3 times a day at jail. Type 2 diabetes mellitus with uncontrolled blood sugars, being treated with increasing insulin dose and monitoring blood sugars and we will keep the patient on no concentrated sweet diet. Chronic kidney disease stage 3b and diabetic nephropathy, stable. [place], [place] DISCHARGE SUMMARY NAME: KASHIF MARQUES UNIT #: [id number] ROOM: 525 DOCTOR: KADEN GRAY MD BIRTHDATE: [birth year] Diabetic gastroparesis, treated with Reglan and Zofran and is asymptomatic. Chronic centrilobular emphysema, treated with bronchodilators. Morbid obesity. The patient worked with dietary. The patient appears to have achieved maximum benefit from this admission; breathing has improved and is being discharged back to jail. Multiple wounds over extremities, which are poorly healing and some suspicion of osteomyelitis and also partial tear of the Achilles tendon on MRI, being followed by foot doctors. Please consult Dr. Phelps to follow. MRI of the ankle results as mentioned above. DISCHARGE MANAGEMENT: Levemir insulin 40 units subcutaneously twice a day, Bumex 1 mg b.i.d. Consult wound care nurse to follow her wounds for regular dressings, apply nystatin powder to skin folds where she has red skin. For the skin fungal infection related to moisture, consult Dr. Phelps's and Dr. Coyne's group to follow for foot issues, Achilles tendon and osteomyelitis of the heel. Spironolactone 25 mg a day, MiraLax 17 grams daily, ondansetron ODT 8 mg t.i.d. p.r.n. for nausea and vomiting, Reglan 5 mg 3 times a day, Tradjenta 5 mg daily, metoprolol 25 mg daily, Imdur 30 mg a day, Plavix 75 mg a day, aspirin 81 mg a day, losartan 100 mg a day, Colace 100 mg daily, ____ Protonix 40 mg a day, Tylenol 1000 mg t.i.d., potassium chloride 20 mEq b.i.d. KADEN GRAY MD CM:YANET [id number] KADEN GRAY MD 05/08/17 [id number] interface
[~2017-05-05 17:22] MED LIST changes: +REGLAN5 MG PO; +ZITHROMAX250 MG PO
[2017-05-05 17:31] VITALS: BP 147/78
[2017-05-05 17:55] LABS: BASO % 0.5 % (0.0-1.0); EOS # 0.1 10*3/uL (0.0-0.4); EOS % 1.6 % (1.0-4.0); HEMATOCRIT 38.9 % (37.0-47.0); HEMOGLOBIN 12.8 g/dl (12.0-16.0); LYMPH # 1.9 10*3/uL (1.3-4.4); LYMPH % 24.9 % (27.0-41.0); MEAN CELL VOLUME 82.8 fl (81.0-99.0); MEAN CORPUSCULAR HGB 27.2 pg (27.0-31.0); MEAN CORPUSCULAR HGB CONC 32.9 g/dl (33.0-37.0); MEAN PLATELET VOLUME 11.6 fl (9.6-12.3); MONO # 0.4 10*3/uL (0.1-1.0); MONO % 5.1 % (3.0-9.0); NEUT % 67.5 % (47.0-73.0); PLATELET COUNT AUTOMATED 187 10*3/uL (130-400); WHITE BLOOD COUNT 7.5 10*3/uL (4.8-10.8)
[2017-05-05 18:04] LABS: ACT PARTIAL THROMBO TIME 23.1 SECONDS (20.8-31.5)
[2017-05-05 18:11] LABS: ALBUMIN 2.7 gm/dl (3.1-4.5); ALKALINE PHOSPHATASE 146 U/L (45-117); BUN 18 mg/dl (7-24); CHLORIDE 97 mmol/L (98-107); CREATININE 1.37 mg/dL (0.55-1.02); POTASSIUM 3.1 mmol/L (3.5-5.1); SGOT/AST 22 IU/L (3-35); SGPT/ALT 27 U/L (12-78); SODIUM 138 mmol/L (136-145); TOTAL PROTEIN 6.8 gm/dL (6.4-8.2)
[2017-05-05 18:12] LABS: TROPONIN I < 0.015 ng/ml (<0.045)
[2017-05-05 19:08] VITALS: BP 197/76
[2017-05-05 19:17] VITALS: BP 148/78
[2017-05-05 20:00] VITALS: BP 157/72
[2017-05-05 20:20] VITALS: BP 162/95
[2017-05-05] MEDS ORDERED: BUMETANIDE1 MG IV (21:40)
[2017-05-05] MEDS ORDERED: PLAVIX75 M1 PO (21:41)
[2017-05-05] MEDS ORDERED: ASPIRIN CHEWABL81 MG PO (21:41)
[2017-05-05] MEDS ORDERED: IMDUR SA30 MG PO (21:42)
[2017-05-05] MEDS ORDERED: JANUVIA50 MG PO (21:43)
[2017-05-05] MEDS ORDERED: METOPROLOL SUCC25 M2 PO (21:43)
[2017-05-05] MEDS ORDERED: TYLENOL325 M2 PO (21:44)
[2017-05-05] MEDS ORDERED: LANTUS SOL100 UNIT/1 SQ (21:44)
[2017-05-06] VITALS: BP 140/58
[2017-05-06 04:00] VITALS: BP 133/68
[2017-05-06 08:00] VITALS: BP 133/54
[2017-05-06 12:00] VITALS: BP 136/56
[2017-05-06 16:00] VITALS: BP 134/60
[2017-05-06 18:14] LABS: CREATININE 1.55 mg/dL (0.55-1.02)
[2017-05-06 18:15] LABS: POTASSIUM 4.3 mmol/L (3.5-5.1)
[2017-05-06 20:00] VITALS: BP 138/63
[2017-05-07] VITALS: BP 136/62
[2017-05-07 06:58] LABS: CREATININE 1.56 mg/dL (0.55-1.02); POTASSIUM 4.4 mmol/L (3.5-5.1)
[2017-05-07 08:00] VITALS: BP 138/76
[2017-05-07 12:00] VITALS: BP 136/68
[2017-05-07 16:00] VITALS: BP 160/85
[2017-05-07 20:54] VITALS: BP 146/74
[2017-05-08] VITALS: BP 159/81
[2017-05-08 06:34] LABS: CREATININE 1.58 mg/dL (0.55-1.02); POTASSIUM 3.9 mmol/L (3.5-5.1)
[2017-05-08 08:00] VITALS: BP 142/78
[2017-05-08 12:00] VITALS: BP 124/60
[2017-05-08 16:00] VITALS: BP 129/69
[2017-05-08] MEDS ORDERED: LEVEMIR100 UNIT/1 SC (18:35)
== END 2017-05-08 21:00 | disposition other institution (70) | DRG 291 ==
LOC: ED 17:22 → 5E 18:38 → EDHOLD 18:38 → 5E 19:30
PROVIDERS: Emergency Medicine; Internal Medicine; Internal Medicine Cardiovascular Disease
DX: I13.0 Hypertensive heart and chronic kidney disease with heart failure and stage 1 through stage 4 chronic kidney disease, or unspecified chronic kidney disease (principal); I50.33 Acute on chronic diastolic (congestive) heart failure; N17.9 Acute kidney failure, unspecified; E11.65 Type 2 diabetes mellitus with hyperglycemia; E11.51 Type 2 diabetes mellitus with diabetic peripheral angiopathy without gangrene; K31.84 Gastroparesis; E11.43 Type 2 diabetes mellitus with diabetic autonomic (poly)neuropathy; E66.01 Morbid (severe) obesity due to excess calories; N39.0 Urinary tract infection, site not specified; Z68.41 Body mass index [BMI] 40.0-44.9, adult; L89.610 Pressure ulcer of right heel, unstageable; E87.6 Hypokalemia; N18.3 Chronic kidney disease, stage 3 (moderate); R62.7 Adult failure to thrive; I25.10 Atherosclerotic heart disease of native coronary artery without angina pectoris; K59.09 Other constipation; B96.20 Unspecified Escherichia coli [E. coli] as the cause of diseases classified elsewhere; K21.0 Gastro-esophageal reflux disease with esophagitis; T50.2X5A Adverse effect of carbonic-anhydrase inhibitors, benzothiadiazides and other diuretics, initial encounter; E78.2 Mixed hyperlipidemia; J43.2 Centrilobular emphysema; Z16.20 Resistance to unspecified antibiotic; Y92.89 Other specified places as the place of occurrence of the external cause; Z95.5 Presence of coronary angioplasty implant and graft; Z79.02 Long term (current) use of antithrombotics/antiplatelets; Z79.82 Long term (current) use of aspirin; Z79.4 Long term (current) use of insulin; Z98.51 Tubal ligation status; Z90.710 Acquired absence of both cervix and uterus; Z79.899 Other long term (current) drug therapy; Z88.5 Allergy status to narcotic agent; Z88.0 Allergy status to penicillin; Z88.2 Allergy status to sulfonamides; Z88.8 Allergy status to other drugs, medicaments and biological substances; Z88.1 Allergy status to other antibiotic agents; Z91.041 Radiographic dye allergy status; Z83.3 Family history of diabetes mellitus; Z80.8 Family history of malignant neoplasm of other organs or systems; Z82.5 Family history of asthma and other chronic lower respiratory diseases; K57.30 Diverticulosis of large intestine without perforation or abscess without bleeding

== ENCOUNTER 2017-08-08 13:40 | Emergency (ER) | payer MEDICARE ==
[~2017-08-08] VITALS: Ht 177.8 cm; Wt 116.6 kg
[~2017-08-08 13:40] MED LIST changes: +ASPIRIN CHEWABL81 MG PO; +BUMETANIDE1 MG IV; +IMDUR SA30 MG PO; +JANUVIA50 MG PO; +LANTUS SOL100 UNIT/1 SQ; +LEVEMIR100 UNIT/1 SC; +METOPROLOL SUCC25 M2 PO; +PLAVIX75 M1 PO; +TYLENOL325 M2 PO
[2017-08-08 14:26] LABS: BASO % 0.2 % (0.0-1.0); EOS % 0.3 % (1.0-4.0); HEMATOCRIT 36.8 % (37.0-47.0); HEMOGLOBIN 12.3 g/dl (12.0-16.0); MEAN CELL VOLUME 80.5 fl (81.0-99.0); MEAN CORPUSCULAR HGB 26.9 pg (27.0-31.0); MEAN CORPUSCULAR HGB CONC 33.4 g/dl (33.0-37.0); MEAN PLATELET VOLUME 10.9 fl (9.6-12.3); MONO # 0.7 10*3/uL (0.1-1.0); MONO % 5.2 % (3.0-9.0); NEUT # 11.1 10*3/uL (2.3-7.9); NEUT % 85.8 % (47.0-73.0); PLATELET COUNT AUTOMATED 211 10*3/uL (130-400); RED BLOOD COUNT 4.57 10*6/uL (4.10-5.10); RED CELL DISTRI WIDTH 13.4 % (0-14.5); WHITE BLOOD COUNT 12.9 10*3/uL (4.8-10.8)
[2017-08-08 14:42] LABS: ALBUMIN 2.9 gm/dl (3.1-4.5); ALKALINE PHOSPHATASE 187 U/L (45-117); BUN 35 mg/dl (7-24); CHLORIDE 102 mmol/L (98-107); CREATININE 1.29 mg/dL (0.55-1.02); LIPASE 86 U/L (73-393); POTASSIUM 3.7 mmol/L (3.5-5.1); SGOT/AST 20 IU/L (3-35); SGPT/ALT 23 U/L (12-78); SODIUM 138 mmol/L (136-145)
[2017-08-08 14:43] LABS: TROPONIN I < 0.015 ng/ml (<0.045)
[2017-08-08 21:25] LABS: BILIRUBIN NEGATIVE (NEGATIVE); BLOOD 3+ (NEGATIVE); CLARITY SL CLOUDY (CLEAR); COLOR YELLOW (YELLOW); GLUCOSE 2+ (NEGATIVE); KETONE NEGATIVE (NEGATIVE); LEUKO ESTERASE NEGATIVE (NEGATIVE); NITRITE POSITIVE (NEGATIVE); UROBILINOGEN 0.2 E.U./dl (0.2-1.0)
[2017-08-08 22:06] LABS: BACTERIA 4+
[2017-08-08 22:07] LABS: EPITHELIAL CELLS 21-30; TRIP PHOS CRYSTALS 1+
[2017-08-08 22:08] LABS: RBC 21-30 rbc/hpf (0-2)
[2017-08-08 23:21] VITALS: BP 154/72
== END 2017-08-09 00:12 | disposition short-term general hospital (02) ==
LOC: ED 13:40
PROVIDERS: Emergency Medicine; Nurse Practitioner Family
DX: R56.9 Unspecified convulsions (principal); E11.9 Type 2 diabetes mellitus without complications; I25.10 Atherosclerotic heart disease of native coronary artery without angina pectoris; J44.9 Chronic obstructive pulmonary disease, unspecified; L89.619 Pressure ulcer of right heel, unspecified stage; E11.43 Type 2 diabetes mellitus with diabetic autonomic (poly)neuropathy; K31.84 Gastroparesis; I11.0 Hypertensive heart disease with heart failure; I50.30 Unspecified diastolic (congestive) heart failure; K21.9 Gastro-esophageal reflux disease without esophagitis; E66.01 Morbid (severe) obesity due to excess calories; Z98.51 Tubal ligation status; Z90.710 Acquired absence of both cervix and uterus; Z98.890 Other specified postprocedural states; Z79.899 Other long term (current) drug therapy; Z79.82 Long term (current) use of aspirin; Z88.0 Allergy status to penicillin; Z88.2 Allergy status to sulfonamides; Z79.4 Long term (current) use of insulin; Z88.1 Allergy status to other antibiotic agents; Z91.041 Radiographic dye allergy status; Z88.6 Allergy status to analgesic agent